=== PATIENT | female | born 1945 | race Caucasian/White ===

== ENCOUNTER 2019-07-15 21:18 | Emergency (ER) | payer MEDICARE, BC, OTHER ==
[~2019-07-15] VITALS: Ht 149.9 cm; Wt 75.0 kg
[2019-07-15] MEDS ORDERED: PLAQ200T4 PO (21:28)
[2019-07-15] MEDS ORDERED: FOLI400T PO (21:28)
[2019-07-15] MEDS ORDERED: NORV2TAB PO (21:28)
[2019-07-15] MEDS ORDERED: ESTR3TA PO (21:28)
[2019-07-15] MEDS ORDERED: METH2.5T48 PO (21:28)
[2019-07-15 22:00] LABS: EOS # 0.1 10^3/uL (0.0-0.50); EOS % 1.5 % (0.0-3.0); HEMATOCRIT 36.4 % (36.0-47.0); HEMOGLOBIN 12.4 g/dl (12.0-15.5); LYMPH # 1.3 10^3/uL (1.5-4.5); LYMPH % 31.6 % (24.0-44.0); MEAN CORPUSCULAR HEMOGLOBIN 30.8 pg (27.0-33.0); MEAN CORPUSCULAR HGB CONC 34.1 g/dl (32.0-36.5); MEAN CORPUSCULAR VOLUME 90.5 fl (80.0-96.0); MONO # 0.3 10^3/uL (0.0-0.8); MONO % 6.8 % (0.0-5.0); NEUTROPHILS # 2.4 10^3/uL (1.8-7.7); NEUTROPHILS % 59.1 % (36.0-66.0); PLATELET COUNT, AUTOMATED 172 10^3/uL (150-450); RED BLOOD COUNT 4.02 10^6/uL (4.00-5.40); WHITE BLOOD COUNT 4.1 10^3/uL (4.0-10.0)
[2019-07-15 22:26] LABS: BLOOD UREA NITROGEN 19 MG/DL (7-18); CALCIUM LEVEL 9.4 MG/DL (8.8-10.2); CARBON DIOXIDE LEVEL 31 MEQ/L (21-32); CHLORIDE LEVEL 109 MEQ/L (98-107); CK-MB VALUE MASS 2.1 NG/ML (<3.6); CPK CREATINE PHOSPHOKINASE 100 U/L (26-192); CREATININE FOR GFR 0.97 MG/DL (0.55-1.30); GLOMERULAR FILTRATION RATE > 60.0 (>39); GLUCOSE, FASTING 106 MG/DL (70-100); POTASSIUM SERUM 3.9 MEQ/L (3.5-5.1); SODIUM LEVEL 144 MEQ/L (136-145); TROPONIN I < 0.02 NG/ML (< 0.10)
[2019-07-16 02:44] LABS: CK-MB VALUE MASS 1.9 NG/ML (<3.6); CPK CREATINE PHOSPHOKINASE 84 U/L (26-192); MB/CK RELATIVE INDEX 2.26 (< OR =4); TROPONIN I < 0.02 NG/ML (< 0.10)
[2019-07-16 03:00] VITALS: BP 145/71
--- NOTE | 2019-07-16 07:48 | REP ---
Portable chest, 09:36 p.m., single AP view with the patient upright: There are no comparisons. The lung bell are clear. The cardiac size is normal. The ana, mediastinum, and skeletal structures are unremarkable. Impression: Negative portable chest. Electronically Signed by Kevyn Bill MD 07/16/2019 07:39 A
--- NOTE | 2019-07-16 13:40 | ECGEPIP ---
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
--- NOTE | 2019-07-16 13:41 | ECGEPIP ---
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
[2019-07-17 14:50] LABS: Lyme Disease IgG/IgM Antibodie <0.91 ISR (0.00-0.90); Lyme Disease IgM Ab Quantitati <0.80 index (0.00-0.79)
== END 2019-07-16 03:19 | disposition home or self-care (01) ==
LOC: M ED 21:18
DX: I49.1 Atrial premature depolarization (principal); R00.2 Palpitations; I34.0 Nonrheumatic mitral (valve) insufficiency; Z79.899 Other long term (current) drug therapy